=== PATIENT | female | born 1990 | race Caucasian/White ===

== ENCOUNTER 2018-07-27 07:05 | Day surgery (SDC) | payer OTHER, SELFPAY ==
[2018-06-29 15:20] VITALS: BMI 24.0
[2018-07-27 07:21] VITALS: BP 117/65; PULSE 59; RESP 16; TEMP 36.8; O2SAT 96; BMI 24.1
[2018-07-27 07:29] LABS: Internal QC Validated? YES +Cl - CLEAR BKGD; Pregnancy, Urine Negative Negative
[2018-07-27 08:25] VITALS: BP 117/65; PULSE 85; RESP 16; TEMP 36.2; O2SAT 100
--- NOTE | 2018-07-27 08:28 | OP.ENDO_ITS ---
Patient Name: Alondra Tomlin Procedure Date: 07/27/2018 7:51 AM Date of : 1990 Age: 27 Procedure: Colonoscopy Indications: Rectal bleeding, h/o anal fissure Providers: Lucy Valenzuela MD Medicines: Monitored Anesthesia Care Patient Profile: This is a 27 year old female. Last Colonoscopy: none. The patient's first colonoscopy is today. Complications: No immediate complications. Procedure: Pre-Anesthesia Assessment: - Prior to the procedure, a History and Physical was performed, and patient medications and allergies were reviewed. The patient's tolerance of previous anesthesia was also reviewed. The risks and benefits of the procedure and the sedation options and risks were discussed with the patient. All questions were answered, and informed consent was obtained. Prior Anticoagulants: The patient has taken no previous anticoagulant or antiplatelet agents. ASA Grade Assessment: II - A patient with mild systemic disease. After reviewing the risks and benefits, the patient was deemed in satisfactory condition to undergo the procedure. After I obtained informed consent, the scope was passed under direct vision. Throughout the procedure, the patient's blood pressure, pulse, and oxygen saturations were monitored continuously. The colonoscope was introduced through the anus and advanced to the cecum, identified by the appendiceal orifice, ileocecal valve and palpation. The colonoscopy was performed without difficulty. The patient tolerated the procedure well. The quality of the bowel preparation was good. Scope In: 8:01:06 AM Scope Withdrawal Time 0 hours 8 minutes 3 seconds Scope Out: 8:19:51 AM Total Procedure Duration Time 0 hours 18 minutes 45 seconds Findings: Healed anal fissure The entire examined colon appeared normal on direct and retroflexion views. Impression: - The entire examined colon is normal on direct and retroflexion views. - No specimens collected. Recommendation: - Discharge patient to home. - Continue present medications. - Repeat colonoscopy at age 45 for screening purposes. Procedure Code(s): --- Professional --- 48602, Colonoscopy, flexible; diagnostic, including collection of specimen(s) by brushing or washing, when performed (separate procedure) Diagnosis Code(s): --- Professional --- K62.5, Hemorrhage of anus and rectum CPT copyright 2017 [employer]. All rights reserved. The codes documented in this report are preliminary and upon sofa cover inspector review may be revised to meet current compliance requirements. MD Lucy Bauer MD 07/27/2018 8:27:34 AM This report has been signed electronically. Number of Addenda: 0 Note Initiated On: 07/27/2018 7:51 AM
[2018-07-27 08:30] VITALS: BP 111/66; BP 117/65; PULSE 76; RESP 16; O2SAT 100
[2018-07-27 08:35] VITALS: BP 103/77; BP 117/65; PULSE 74; RESP 16; O2SAT 100
[2018-07-27 08:40] VITALS: BP 117/65; BP 119/72; PULSE 73; RESP 16; TEMP 36.8; O2SAT 100
[2018-07-27 08:52] VITALS: BP 117/65
== END 2018-07-27 09:09 | disposition home or self-care (01) ==
LOC: EN 07:05 → AC 07:06
PROVIDERS: Anesthesiology; Family Provider Family Medicine; PCP Family Medicine; Referring Provider Surgery; Visit Provider Surgery
PROC: 0DJD8ZZ Inspection of Lower Intestinal Tract, Via Natural or Artificial Opening Endoscopic (ICD-10-PCS; CPT 45378; principal; 2018-07-27 07:55)
DX: K62.5 Hemorrhage of anus and rectum (principal); Z79.899 Other long term (current) drug therapy; Z79.3 Long term (current) use of hormonal contraceptives
CPT/HCPCS: 45378; 81025; J7120